=== PATIENT | female | born 1990 | race Caucasian/White ===

== ENCOUNTER 2018-09-20 19:51 | Emergency (ER) | payer BC ==
[2018-09-20 20:18] VITALS: BP 172/90; PULSE 80; RESP 18; TEMP 99.1
--- NOTE | 2018-09-20 22:38 | XR ---
EXAMINATION TYPE: XR hand complete LT DATE OF EXAM: 09/20/2018 COMPARISON: NONE HISTORY: Swelling TECHNIQUE: 3 views FINDINGS: I see no fracture nor dislocation. Metacarpals are intact. There is soft tissue swelling on the dorsum of the hand. IMPRESSION: Soft tissue swelling. No fracture seen.
--- NOTE | 2018-09-21 12:00 | US ---
EXAMINATION TYPE: US venous doppler duplex UE LT DATE OF EXAM: 09/21/2018 COMPARISON: NONE CLINICAL HISTORY: arm pain; swelling. SIDE PERFORMED: Left Left Arm: Negative for DVT. Vessels Imaged: IJV Subclavian Vein Axilla Vein Brachial Vein(s) Radial Paired Veins Ulnar Paired Veins Cephalic Vein* Basilic Vein* (*superficial vessels) IMPRESSION: Normal left arm duplex venous sonogram.
== END 2018-09-21 00:41 | disposition home or self-care (01) ==
LOC: EC 19:51
DX: R60.0 Localized edema (principal)
CPT/HCPCS: 96372; 99284

== ENCOUNTER → 2019-10-31 | Outpatient (CLI) | payer OTHER ==
--- NOTE | 2019-10-31 13:34 | ECHOF ---
Referral Reason:R01.1 cardiac murmur MEASUREMENTS -------- HEIGHT: 182.9 cm WEIGHT: 136.1 kg BP: RVIDd: 2.8 cm (< 3.3) IVSd: 1.3 cm (0.6 - 1.1) LVIDd: 3.9 cm (3.9 - 5.3) LVPWd: 1.6 cm (0.6 - 1.1) IVSs: 1.7 cm LVIDs: 2.5 cm LVPWs: 1.9 cm LAESV Index (A-L): 16.25 ml/m Ao Diam: 3.2 cm (2.0 - 3.7) AV Cusp: 1.7 cm (1.5 - 2.6) LA Diam: 2.8 cm (2.7 - 3.8) MV EXCURSION: 14.924 mm (> 18.000) MV EF SLOPE: 135 mm/s (70 - 150) EPSS: 0.6 cm MV E Ramso: 1.09 m/s MV DecT: 179 ms MV A Ramos: 0.51 m/s MV E/A Ratio: 2.14 RAP: 5.00 mmHg RVSP: 10.33 mmHg FINDINGS -------- Sinus rhythm. This was a technically adequate study. The left ventricular size is normal. There is moderate concentric left ventricular hypertrophy. O verall left ventricular systolic function is normal with, an EF between 55 - 60 %. The diastolic fi lling pattern is normal for the age of the patient 9.83. The right ventricle is normal in size. The left atrial size is normal. Normal LA size by volume 22+/-6 ml/m2. The right atrial size is normal. The aortic valve is trileaflet and appears structurally normal. The mitral valve is normal. There is trace mitral regurgitation. The tricuspid valve appears structurally normal. Trace tricuspid regurgitation present. Right [place] tricular systolic pressure is normal at < 35 mmHg. There is no pulmonic regurgitation present. The aortic root size is normal. Normal inferior vena cava with normal inspiratory collapse consistent with estimated right atrial pre ssure of 5 mmHg. There is no pericardial effusion. CONCLUSIONS -------- 1. Sinus rhythm. 2. This was a technically adequate study. 3. The left ventricular size is normal. 4. There is moderate concentric left ventricular hypertrophy. 5. Overall left ventricular systolic function is normal with, an EF between 55 - 60 %. 6. The diastolic filling pattern is normal for the age of the patient 9.83 7. The right ventricle is normal in size. 8. The left atrial size is normal. 9. Normal LA size by volume 22+/-6 ml/m2. 10. The right atrial size is normal. 11. The aortic valve is trileaflet and appears structurally normal. 12. The mitral valve is normal. 13. There is trace mitral regurgitation. 14. The tricuspid valve appears structurally normal. 15. Trace tricuspid regurgitation present. 16. Right ventricular systolic pressure is normal at < 35 mmHg. 17. There is no pulmonic regurgitation present. 18. The aortic root size is normal. 19. Normal inferior vena cava with normal inspiratory collapse consistent with estimated right atrial pressure of 5 mmHg. 20. There is no pericardial effusion. POLICE PATROL OFFICER: Kathryn Sosa RDCS
== END | disposition home or self-care (01) ==
LOC: RADECHMAIN 08:11
PROVIDERS: ATTEND Family Medicine
DX: I51.7 Cardiomegaly (principal)
CPT/HCPCS: 93306

== ENCOUNTER → 2019-11-12 | Outpatient (CLI) | payer OTHER ==
[2019-11-12 08:52] VITALS: BP 141/99; PULSE 82; RESP 18; TEMP 98
--- NOTE | 2019-11-12 09:52 | P.HPOB ---
History of Present Illness H&P Date: 11/12/19 Chief Complaint: The patient is here for her routine gynecologic exam. This is a 29-year-old with an LMP of 10/23/2019. The patient is here to establish with this office. She states it is been a little more than one year since her last pelvic exam. She has been using natural family planning to prevent . She recently was contemplating attempting . Her menstrual periods are typically regular every month lasting 5-7 days. In the months of August and September 2019, she had 2 menstrual periods in each month. Her LMP was more normal and at the appropriate time. She states she typically does feel warm and this is not new, but she seems to have been experiencing more sweating during the past year. She denies nipple discharge or unusual facial hair growth. She states she has been trying to lose weight during the past year and initially lost 30 pounds with diet and exercise. She states she has gained about 10 pounds back. Review of Systems She has had a net weight loss of about 20 pounds over the past year. She states she has had issues with her weight for most of her life. She denies respiratory, cardiac, or GI problems. Past Medical History Past Medical History: Musculoskeletal Disorder Additional Past Medical History / Comment(s): Eating disorder and obesity. Chronic back problems. 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 PIH with her first . History of Any Multi-Drug Resistant Organisms: None Reported Past Surgical History: Section, Tonsillectomy Additional Past Surgical History / Comment(s): Lower back surgery. Past Psychological History: No Psychological Hx Reported Smoking Status: Never smoker Past Alcohol Use History: Occasional (2 per month) Past Drug Use History: Marijuana Additional Drug Use History / Comment(s): Briefly used marijuana around age 19- 20. Additional History: She has been since 2016. She works part-time at [employer]. - Past Family History Father Family Medical History: Hypertension Additional Family Medical History / Comment(s): Paternal aunt had colon cancer. Paternal grandfather had prostate cancer. Maternal grandfather Family Medical History: Cancer Additional Family Medical History / Comment(s): Leukemia. Medications and Allergies Home Medications Medication Instructions Recorded Confirmed Type No Known Home Medications 11/12/19 11/12/19 History Allergies Allergy/AdvReac Type Severity Reaction Status Date / Time No Known Allergies Allergy Verified 11/12/19 08:48 Exam Vital Signs Temp Pulse Resp BP Pulse Ox 11/12/19 08:49 98.0 F 82 18 141/99 99 Intake and Output 11/11/19 11/12/19 11/12/19 22:59 06:59 14:59 Other: Weight 167.829 kg Repeat blood pressure 148/90. Height 5 feet 11 inches, weight 370 pounds, BMI 51.6. This is a well-developed well-nourished obese white female who is alert and oriented times 3 in no acute distress. HEENT: Within normal limits. NECK: Supple without mass or thyromegaly. CHEST AND LUNGS: Clear to auscultation. HEART: Regular rate and rhythm. BREASTS: Are without mass or discharge. AXILLARY EXAM: Negative for adenopathy. BACK: Negative for CVA tenderness. ABDOMEN: Soft, obese, nontender, without palpable masses. The umbilicus is within normal limits. She states she has experienced occasional foul-smelling discharge from the umbilicus, but this has resolved. PELVIC EXAM: Normal external genitalia. Cervix and vagina appear normal. There is no unusual discharge. There is no evidence of prolapse. The uterus is midposition, nongravid size and nontender. There are no palpable adnexal masses or tenderness. Bimanual examination is somewhat limited secondary to her size. RECTAL EXAM: Deferred. EXTREMITIES: Nontender. IMPRESSION: 1. 29-year-old female with normal gynecologic exam who uses natural family planning. 2. Recent polymenorrhea during the months of August and September 2019. No significant physical findings at this time. 3. Obesity. 4. Elevated blood pressure. PLAN: 1. Pap smear was performed. 2. Self breast awareness was discussed with the patient. 3. TSH will be drawn today because of her recent menstrual irregularity late in 2019. 4. I have recommended that she take a daily multivitamin with folic acid. 5. We have discussed weight control including the importance of good nutrition and regular exercise. I have also suggested the possibility of using a program such as Weight Watchers to help her control weight. 6. The patient will keep a menstrual calendar and return if she is having more menstrual irregularity or problems. 7. Her blood pressure elevation was discussed. I have recommended that she check her own blood pressure at home with a large blood pressure cuff. She is also to follow up with Dr. Acevedo for her blood pressure elevations. 8. She was advised to return in one year for her annual well woman exam.
== END | disposition home or self-care (01) ==
LOC: WWCWWP 08:22
PROVIDERS: ATTEND Obstetrics & Gynecology
DX: N92.0 Excessive and frequent menstruation with regular cycle (principal)
CPT/HCPCS: 84443

== ENCOUNTER → 2020-03-17 | Outpatient (CLI) | payer OTHER ==
[2020-03-17 09:58] VITALS: BP 144/89; RESP 18; TEMP 98.2
--- NOTE | 2020-03-17 11:04 | P.PN ---
Progress Note - Text Progress Note Date: 03/17/20 Chief Complaint: Greater menstrual irregularity over the past 4 months. HPI: This is a 29-year-old with an LMP of 03/11/2020. The patient was previously seen for her annual examination approximately 4 months ago. She had 2 months of frequent menses during August and September 2019 where she had to menstrual periods during each of those months. Her period in October was normal. Did not have a menstrual period in November and again had a menstrual period on 01/05/2020. This menstrual period was shorter and only lasted 4 days. She had a more normal menstrual period lasting 7 days on 02/11/2020. Her LMP on 03/11/2020 was shorter and griddle cook with only 3 days of griddle cook flow and a couple of days of spotting. She has also had multiple other complaints which she thinks may be related to her menstrual changes. She has noticed worsening hair loss over the past 1 year. She feels like she is developing slight bald spots. She has not been using contraception but has not really been actively trying to get either. She feels like she has been more forgetful with events that have just occurred. She has also been more emotional and tearful. She has been trying to eat more healthy and states she has less binge eating. She is been trying to increase activity as well but has been having difficulty losing weight. She has noticed more hair growth above her lip, but she is unsure if this is related to her [place] Heritage. She also has noticed some vaginal itching and wonders if she has a yeast infection. She has not gotten frequent yeast infections. She denies vaginal discharge or odor. She has not recently been on antibiotics. ROS: As above. PE: Blood pressure: 144/89, Height: 5 Feet 11 inches, Weight: 375 pounds, Temperature: 98.2, Pulse: 74. Pulse oximeter 98%. This is a well developed, well nourished, obese white female who is alert and orientedx3, in no acute distress. Pelvic exam: Normal external genitalia. Cervix and vagina appear normal. There is a small amount of mucous-type discharge without odor. There is no cervical motion tenderness. Uterus is mid positioned nongravid size and nontender. There are no palpable adnexal masses or tenderness. Bimanual examination is somewhat limited secondary to her size. Impression: 1. 29-year-old female not actively preventing with unremarkable gynecologic exam. 2. Recent menstrual irregularity consisting of mild oligomenorrhea. 3. Obesity with difficulty losing weight. 4. Mild hirsutism. 5. Possible PCOS. Differential diagnosis will also include thyroid dysfunction, hyperprolactinemia, , hyperandrogenism and possible diabetes with related symptoms. 6. Vaginal pruritus without any significant physical findings at this time. Plan: 1. Affirm testing for Viki, bacterial vaginosis, and trichomonas was obtained from the vagina. 2. Blood tests will include TSH, free T4, prolactin, FSH, LH, serum hCG, hemoglobin A1c, glucose, testosterone (free and total), DHEA-S and estradiol. 3. I have stressed the importance of good nutrition and exercise to lose weight. If the above workup is unremarkable, consider treatment for PCOS. We have discussed different options including trial of control pills as well as metformin use. We will also consider referral to a salesperson hosiery. Time spent with the patient: 35 minutes
[2020-03-17 19:41] LABS: Estradiol 38.6 pg/mL
[2020-03-17 19:43] LABS: Glucose 84 mg/dL (70-110)
[2020-03-17 19:51] LABS: Prolactin 5.1 ng/mL (2.8-29.2)
[2020-03-17 19:52] LABS: Follicle Stimulating Hormone 5.7 mIU/mL
[2020-03-17 19:55] LABS: HCG,Quantitative Serum <2.0 mIU/mL; Luteinizing Hormone 3.4 mIU/mL
[2020-03-18 14:11] LABS: Gardnerella Negative (Negative); Source Vagina; Trichomonas Negative (Negative)
--- NOTE | 2020-03-19 15:18 | P.PN ---
Progress Note - Text Progress Note Date: 03/19/20 The patient was called with test results from 03/17/20. Affirm testing was negative for Viki, Gardnerella and Trichomonas. Glucose, A1C, TSH, free T4, estradiol, FSH, LH, prolactin, testoserone, DHEA-s, and HCG were all WNL. I suspect she has some degree of polycystic ovarian syndrome. Because of her obesity, elevated blood pressures, and desire to get in the future, I have suggested working hard at weight loss and seeing a performance improvement coordinator. We have discussed options such as Weight Watchers and bariatric surgery options. I do not feel comfortable starting oral contraception for cycle regulation because of her elevated blood pressures and I feel other treatments such as metformin would be best done through a performance improvement coordinator. I will look into referring her to an RE specialist and I will send her more information on PCOS.
== END | disposition home or self-care (01) ==
LOC: WWCWWP 09:45
PROVIDERS: ATTEND Obstetrics & Gynecology
DX: L29.2 Pruritus vulvae (principal); N91.4 Secondary oligomenorrhea; E66.9 Obesity, unspecified; L65.9 Nonscarring hair loss, unspecified; L68.0 Hirsutism
CPT/HCPCS: 36415; 82627; 82670; 82947; 83001; 83002; 83036; 84146; 84402; 84403; 84439; 84443; 84702; 87480; 87510; 87660

== ENCOUNTER → 2020-04-22 | Outpatient (CLI) | payer OTHER ==
[2020-04-22 08:36] VITALS: BP 135/98; PULSE 85; RESP 16
--- NOTE | 2020-04-22 09:25 | P.PAINCN ---
History of Present Illness - Reason for Consult Consult date: 04/22/20 - History of Present Illness This is 29 years old female with a chronic history of severe low back pain, patient had lumbar herniated disc problem which required her to have back surgery in 2018, after the surgery she did fairly well, her radicular symptoms improved significantly, currently she is complaining of severe low back pain with radiation to the buttock and hip area bilaterally, the pain is constant and increases with any activity interfering with her quality of life and her ability to function, she denies any fever or night sweats she denies any motor or sensory deficits, she is able to ambulate freely, she tried physical therapy without any significant benefit Past Medical History Past Medical History: Musculoskeletal Disorder Additional Past Medical History / Comment(s): Eating disorder and obesity. Chronic back problems. 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 PIH with her first . PCOS History of Any Multi-Drug Resistant Organisms: None Reported Past Surgical History: Section, Tonsillectomy Additional Past Surgical History / Comment(s): Lower back surgery. Past Anesthesia/Blood Transfusion Reactions: No Reported Reaction Past Psychological History: No Psychological Hx Reported Smoking Status: Never smoker Past Alcohol Use History: Occasional Past Drug Use History: Marijuana Additional Drug Use History / Comment(s): Briefly used marijuana around age 19- 20. - Past Family History Father Family Medical History: Hypertension Additional Family Medical History / Comment(s): Paternal aunt had colon cancer. Paternal grandfather had prostate cancer. Maternal grandfather Family Medical History: Cancer Additional Family Medical History / Comment(s): Leukemia. Medications and Allergies Home Medications Medication Instructions Recorded Confirmed Type Acetaminophen Tab [Tylenol Tab] 500 mg PO Q6H 03/17/20 04/22/20 History Ibuprofen [Motrin] 400 mg PO Q8HR PRN 03/17/20 04/22/20 History Multivitamin [Multivitamins Adult 1 each PO DAILY 03/17/20 04/22/20 History Gummies] Allergies Allergy/AdvReac Type Severity Reaction Status Date / Time No Known Allergies Allergy Verified 04/22/20 08:18 Physical Exam Vitals: Vital Signs Pulse Resp BP Pulse Ox 04/22/20 08:20 85 16 135/98 97 Intake and Output 04/21/20 04/22/20 04/22/20 22:59 06:59 14:59 Other: Weight 181.437 kg REVIEW OF ORGAN SYSTEMS: CONSTITUTIONAL: No fevers or chills. No recent weight loss. EYES: denies troubles with vision. HEENT: No difficulties with hearing. No nosebleeds. No difficulty swallowing. RESPIRATORY: Denies any troubles with breathing or dyspnea on exertion. CARDIOVASCULAR: Denies any chest pain, palpitations, or recent heart attacks. GASTROINTESTINAL: Denies fatty food intolerance. Has change in bowel habits and gas bloat. GENITOURINARY: Denies any blood in urine. Has increased urinary frequency. NEUROLOGICAL: occasional numbness and tingling along the left distal extremities. No seizure disorders or headaches. MUSCULOSKELETAL: Has back pain. SKIN:no skin cancer. No rash. PSYCHIATRIC: Denies current depression or suicidal thoughts. ENDOCRINE: Denies current thyroid disorders. Denies any blood sugar glucose intolerance.++ Morbid obesity HEME/LYMPHATIC: Denies any lumps and bumps around the neck. History of deep venous thrombosis. ALLERGY/IMMUNOLOGY: No immunoglobulin therapy. No immune deficiencies. BREAST: Denies current breast lumps, pain or nipple discharge. Physical Examinations : Constitutiona : Cooperative , not in acute distress . HEENT : nech : supple , no Lymphadenopathy , normal thyroid size . : eyes no ptosis , no icterus, no photophobia . : ENT normal of hearing , normal oropharynx , no Thrush . Respiratory : Chest clear to auscultations Bilaterally , no wheezing , no Rhonchi . Cardiovascula : regular rate and rhythem , S1 , S2 , no S3 , no S4. Gastrointestina : abdomen soft no tenderness , bowel sounds , no organomegally . Genitourinary : Defferred . neurologic : Cranial nerve II to XII intact , no focal neurological deffecit . psychatric : alert , oriented X 3 , appropriate affect , intact judgment and insight . Lymphatic : no Lymphadenopathy . musculoskeltal : Lumber spine moter stegnth lower extremities ,thigh and legs 5/5 Right side , 5/5 Left side deep tendon reflexes : normal Knee Jerk , normal ankle Jerk lumber facet Loading Test= positive Right , positive Left Range of motion of the lumbar spine Flexion 60 degrees, extension 10 degrees strait leg raising test , positive at 45 degree Fabere test= positive Right , and positive left . Sever tenderness over the Sacroiliac joint on the Right , and Left sides Gaenslen test= positive bilaterally. Seated flexion test= positive bilaterally. Tenderness over the trochanteric bursa bilaterally more prominent on the right side Results Comments: MRI of the lumbar spine multilevel lumbar degenerative disc disease and multilevel facet joint arthropathy and there is postsurgical changes Assessment and Plan Plan: Assessment and plan= lumbar degenerative disc disease. Lumbar spondylosis with lumbar facet arthropathy. Bilateral sacroiliitis. Trochanteric bursitis. Morbid obesity. Patient will be good candidate to have diagnostic medial branch block lumbar area L3, L4, L5 (to target the facet joint at L4 5 and L5-S1. Procedure risks and benefits and alternatives discussed with the patient and she agreed with the preceding Time with Patient: Greater than 30 PQRS Measure Charge Sheet Measure #130: Documentation of Current Meds in Medical Chart: Patient's medications documented in chart Measure #226: Tobacco Use: Screen & Cessation Intervention: Pt not a tobacco user Measure #111: Pneumonia Vaccination: Pneumococcal vaccine NOT administered or previously given Measure #47: Advance Care Plan: Advance care planning discussed & documented, pt chose/unable to give Measure #412: Opioid Treatment Agreement: No documentation of signed opioid treatment agreement Measure #408: Opioid Therapy Follow-up Evaluation: Patient had NO f/u eval minimum every 3 months during opioid therapy Measure #317: Preventitive Care & Scrn High Bld Press & F/U: Normal blood pressure, f/u not required Measure #128: Body Mass Index (BMI) Screening & Follow-up: BMI documented ABOVE normal parameters - f/u documented Measure #131: Pain Assessment & Follow-up: Pain positive & plan documented, Follow-up scheduled Measure #431: Unhealthy Alcohol Use Preventative Care & Scrn: Patient not identified as an unhealthy alcohol user PQRS Narrative: Smoking Status Never smoker Blood Pressure 135/98 Pain Intensity [Lower Back] 5 Scale Used Numeric (1 - 10) Hx Alcohol Use (MH) Yes: occasional Home Medications: Ambulatory Orders Acetaminophen Tab [Tylenol Tab] 500 mg PO Q6H 03/17/20 Ibuprofen [Motrin] 400 mg PO Q8HR PRN 03/17/20 Multivitamin [Multivitamins Adult Gummies] 1 each PO DAILY 03/17/20
== END | disposition home or self-care (01) ==
LOC: PNWHC3 08:11
PROVIDERS: ATTEND Specialist
DX: M51.36 Other intervertebral disc degeneration, lumbar region (principal); M47.816 Spondylosis without myelopathy or radiculopathy, lumbar region; M46.1 Sacroiliitis, not elsewhere classified; M70.60 Trochanteric bursitis, unspecified hip; E66.01 Morbid (severe) obesity due to excess calories; Z79.899 Other long term (current) drug therapy; Z79.891 Long term (current) use of opiate analgesic
CPT/HCPCS: 99211

== ENCOUNTER 2020-05-07 09:14 | Day surgery (SDC) | payer OTHER ==
[2020-05-05 08:35] VITALS: BMI 57.4
[2020-05-07] MEDS ORDERED: LACTATED RINGERS 1,000 ML IV SCH (09:26)
[2020-05-07 09:36] VITALS: RESP 16; TEMP 98
[2020-05-07] MEDS ORDERED: IOPAMIDOL M200 10 ML VIAL ONE (10:21)
[2020-05-07] MEDS ORDERED: MIDAZOLAM 2 MG/2 ML VIAL ONE (10:21)
[2020-05-07] MEDS ORDERED: LIDOCAINE 4% (PF) 5 ML AMP ONE (10:21)
[2020-05-07] MEDS ORDERED: IV FLUID CONTINUATION 700 ML IV ONE (10:48)
--- NOTE | 2020-05-07 10:53 | P.PCN ---
Date of Procedure: 05/07/20 Procedure(s) Performed: PREOPERATIVE DIAGNOSIS : Lumbar spondylosis with Facet Arthropathy without myelopathy POSTOPERATIVE DIAGNOSIS: same PROCEDURE: First Diagnostic lumbar medial branch block with fluoroscopy at L3, L4, L5 [bilateral] which covers facets L4-5 and L5-S1 ANESTHESIA: Local anesthetic; moderate IV sedation with Versed 2 mg, sedation time 13 minutes Fluoroscopy was used for the procedure and images were saved in the radiology portion of the chart. Surgeon: Bret Sanchez MD PROCEDURE INDICATION: Lumbar back pain without radiculopathy, not responsive to conservative management. PROCEDURE DESCRIPTION: the patient was seen and identified in the preop holding area , risks and benefits and possible complications of the procedure and alternatives were discussed with the patient, and the patient agreed to proceed with the procedure and signed the consent . IV was started , vital signs were monitored during the procedure and fluoroscopy was used to maximize the benefit and accuracy of the needle placement, and sedation was given to decrease patient anxiety. Patient was taken to the procedure room and placed in prone position. The lumbar region was prepped using chlorhexidineX-2. Under strict sterile technique using AP fluoroscopy the bilateral sacral ala were identified and using ipsilateral oblique fluoroscopy ,the junction of the transverse process and the superior articulating process of the L4, L5 vertebra which corresponds to the fluoroscopy image of the eye of the Subhash dog for the medial branches were identified. Subsequently, after local infiltration of skin with lidocaine 1% 0.2 mL at each level , a 22-gauge 5 inch Quincke-type needle was placed at the junction of the base of the transverse process and the superior articular process at the appropriate level as well as the sacral ala, and the needle was advanced until the periosteum contacted, needle placement confirmed with AP and oblique fluoroscopy, 0.2 mL of Isovue 200 per level was injected which revealed no vascular uptake and after negative aspiration, 0.5 mL of [lidocaine 4%] was injected at each level and the needle subsequently removed . At the end of the procedure and the needles were removed and a bandage applied after the skin was cleaned. The patient was taken to recovery room in stable condition and monitors in the recovery room for 20-30 minutes and discharged home in stable condition after discharge criteria met and patient will follow up in clinic in 2 weeks EBL: Minimal COMPLICATION: None.
[2020-05-07 11:16] VITALS: BP 134/78; PULSE 75
--- NOTE | 2020-05-07 15:30 | FL ---
EXAMINATION TYPE: FL guided pain mgmt statistic DATE OF EXAM: 05/07/2020 COMPARISON: None HISTORY: Lumbar facet pain TECHNIQUE: Fluoroscopy. FINDINGS: Fluoroscopic guidance was provided during procedure performed by Dr. Sanchez. A total of 8 se conds of fluoroscopic time was utilized during the procedure and 3 spot images was acquired. Please s ee operative report for additional details. IMPRESSION: As Above.
== END 2020-05-07 11:38 | disposition home or self-care (01) ==
LOC: ORPAIN 09:14
PROVIDERS: ATTEND Anesthesiology
DX: M47.816 Spondylosis without myelopathy or radiculopathy, lumbar region (principal)
CPT/HCPCS: 81025; 64493; 64494; J2001; J2250; Q9966; 99152

== ENCOUNTER 2020-05-28 09:08 | Day surgery (SDC) | payer OTHER ==
[2020-05-25 13:07] VITALS: BMI 56.6
[2020-05-28 09:58] VITALS: RESP 16; TEMP 98.3
[2020-05-28] MEDS: LACTATED RINGERS 1,000 ML IV SCH ×2 (10:04→10:17)
[2020-05-28] MEDS ORDERED: LIDOCAINE 1% (10MG/ML) FOR IV START INTRADERMA ONE (10:04)
[2020-05-28] MEDS ORDERED: LIDOCAINE 1% INJ 10MG/ML (20 ML MDV) ONE (10:19)
[2020-05-28] MEDS ORDERED: MIDAZOLAM 2 MG/2 ML VIAL ONE (10:19)
[2020-05-28] MEDS ORDERED: ROPIVACAINE 5MG/ML 20ML VIAL ONE (10:19)
[2020-05-28] MEDS ORDERED: IOPAMIDOL M200 10 ML VIAL ONE (10:19)
--- NOTE | 2020-05-28 10:43 | P.PCN ---
Date of Procedure: 05/28/20 Description of Procedure: PREOPERATIVE DIAGNOSIS : Lumbar spondylosis with Facet Arthropathy without myelopathy POSTOPERATIVE DIAGNOSIS: same PROCEDURE: Second Diagnostic lumbar medial branch block with fluoroscopy at L3, L4, L5 [bilateral] which covers facets L4-5 and L5-S1 ANESTHESIA: Local anesthetic; moderate IV sedation with Versed mg, sedation time 16 min Fluoroscopy was used for the procedure and images were saved in the radiology portion of the chart. Surgeon: Brody Steve MD PROCEDURE INDICATION: Lumbar back pain without radiculopathy, not responsive to conservative management. PROCEDURE DESCRIPTION: the patient was seen and identified in the preop holding area , risks and benefits and possible complications of the procedure and alternatives were discussed with the patient, and the patient agreed to proceed with the procedure and signed the consent . IV was started , vital signs were monitored during the procedure and fluoroscopy was used to maximize the benefit and accuracy of the needle placement, and sedation was given to decrease patient anxiety. Patient was taken to the procedure room and placed in prone position. The lumbar region was prepped using chlorhexidineX-2. Under strict sterile technique using AP fluoroscopy the bilateral sacral ala were identified and using ipsilateral oblique fluoroscopy ,the junction of the transverse process and the superior articulating process of the L4, L5 vertebra which corresponds to the fluoroscopy image of the eye of the Subhash dog for the medial branches were identified. Subsequently, after local infiltration of skin with lidocaine 1% 0.2 mL at each level , a 22-guage 5"Quincke-type needle was placed at the junction of the base of the transverse process and the superior articular process at the appropriate level as well as the sacral ala, and the needle was advanced until the periosteum contacted, needle placement confirmed with AP and oblique fluoroscopy, 0.2 mL of Isovue 200 per level was injected which revealed no vascular uptake and after negative aspiration, 1 mL of ropivacaine 0.5% was injected at each level and the needle subsequently removed . At the end of the procedure and the needles were removed and a bandage applied after the skin was cleaned. The patient was taken to recovery room in stable condition and monitors in the recovery room for 20-30 minutes and discharged home in stable condition after discharge criteria met and patient will follow up in clinic in 2 weeks EBL: Minimal COMPLICATION: None.
[2020-05-28 11:13] VITALS: BP 148/91; PULSE 75
[2020-05-28] MEDS ORDERED: IV FLUID CONTINUATION 1,000 ML IV ONE (11:13)
--- NOTE | 2020-05-28 13:23 | FL ---
EXAMINATION TYPE: FL guided pain mgmt statistic DATE OF EXAM: 05/28/2020 CLINICAL HISTORY: Low back pain. TECHNIQUE: Fluoroscopy. COMPARISON: None. FINDINGS: Fluoroscopic guidance was provided during pain relief procedure performed by Dr. Steve . A total of 24 seconds of fluoroscopic time was utilized during the procedure and 3 spot images are a cquired. Images acquired shows needle localization lower lumbar spine and near lumbosacral junction. IMPRESSION: As Above.
== END 2020-05-28 11:36 | disposition home or self-care (01) ==
LOC: ORPAIN 09:08
PROVIDERS: ATTEND Anesthesiology
DX: M47.816 Spondylosis without myelopathy or radiculopathy, lumbar region (principal)
CPT/HCPCS: 81025; 64493; 64494 ×2; J2250; J2001; Q9966; J2795; 99152

== ENCOUNTER → 2020-06-22 | Outpatient (CLI) | payer OTHER ==
[2020-06-22 09:32] VITALS: BP 144/95; PULSE 78; RESP 16; TEMP 98.1
--- NOTE | 2020-06-22 09:54 | P.PN ---
Subjective Progress Note Date: 06/22/20 This is a 40-year-old morbidly obese lady with history of chronic lower back pain status post lumbar laminectomy. The patient had a diagnostic lumbar medial branch block bilaterally in our clinic which gave her more than 50% of temporary pain relief. The patient denies any bowel or bladder dysfunction or any weakness in the lower extremities. She denies any history of diabetes or prediabetes however she has PCOS and she takes metformin for that. The patient has more pain on the left side of her lower back. Patient denies new-onset weakness, bowel/bladder incontinence, or any other signs or symptoms of cauda equina syndrome. There are no signs of acute intoxication, and no indications of medication diversion or overuse. In addition to above, 13-point review of systems is also negative for chest pain, shortness of breath, changes in vision, changes in hearing, new onset weakness, abdominal pain, diarrhea, extreme fatigue, malaise, fever, skin changes, homicidal or suicidal ideation, or bowel or bladder incontinence. Vital Signs: Reviewed in EMR Gen: AAOx3, NAD HEENT: PERRLA,hearing grossly normal Pulm: resp unlabored Heart: Regular Neck: supple, trachea midline Neuro exam of the lower extremities: Normal and symmetrical muscle strength bilaterally Straight leg raising test: Negative bilaterally Gio's test: Range of motion of the lumbar spine: Facet loading test: Tenderness in the paravertebral musculature: Positive on the lumbar paravertebral musculature bilaterally more on the left side than the right side Neuro: CN II-XII grossly intact, Imaging: Reviewed in EMR/chart Assessment: Morbid obesity Lumbar spondylosis without myelopathy Lumbar postlaminectomy pain syndrome Plan: 1. Explanation: Opioid and psychological risk scores were reviewed. Diagnoses, prognoses, and multiple treatment options including but not limited to physical therapy, interventional therapies, adjuvant medical therapies, narcotic medication therapies, and surgery were discussed with the patient and all questions were answered to the patient's satisfaction. 2. Opioid agreement: Not side Signed with the patient and the patient is warned not to use opioids while driving or before driving and not to combine opioids with benzodiazepines or alcohol. The patient does not use opioids. 3. Counseling: The patient was counseled extensively on SMOKING CESSATION, BODY MASS INDEX, EXERCISE. Specifically, the patient was instructed regarding the importance of smoking cessation, obesity, and exercise in the context of both chronic pain and overall health. 4. Procedures: Scheduled for left lumbar medial branch RFA for levels L3 4, L4- L5, and L5-S1 under fluoroscopic guidance 5. Consultations: None 6. Investigations: None 7. Medications: None 8. Disposition: Return to clinic in 4 weeks 9. Maps were reviewed and were appropriate. Objective - Vital Signs Vital signs: Vital Signs Temp 98.1 F 06/22/20 09:21 Pulse 78 06/22/20 09:21 Resp 16 06/22/20 09:21 BP 144/95 06/22/20 09:21 Pulse Ox 99 06/22/20 09:21
== END | disposition home or self-care (01) ==
LOC: PNWHC3 09:08
PROVIDERS: ATTEND Anesthesiology
DX: M96.1 Postlaminectomy syndrome, not elsewhere classified (principal); M47.816 Spondylosis without myelopathy or radiculopathy, lumbar region; E66.01 Morbid (severe) obesity due to excess calories
CPT/HCPCS: 99211

== ENCOUNTER 2020-06-27 11:49 | Emergency (ER) | payer OTHER ==
[2020-06-27] MEDS ORDERED: ORPHENADRINE 30 MG/ML 2 ML VIAL IM STA (12:22)
[2020-06-27] MEDS ORDERED: HYDROmorphone 1 MG/ML 1 ML SYRINGE IM STA (12:22)
[2020-06-27] MEDS ORDERED: methylPREDNISolone SOD SUCCI 125 MG/2 ML VIAL IM ONE (12:22)
--- NOTE | 2020-06-27 13:35 | ED ---
Back Pain HPI - General Chief Complaint: Back Pain/Injury Stated Complaint: Back pain Time Seen by Provider: 06/27/20 12:04 Source: patient, RN notes reviewed, old records reviewed Limitations: no limitations - History of Present Illness Initial Comments: Patient is a 30-year-old female presents the ER today for concern for intractable back pain. She has history of chronic back pain. She states that over the past few hCG worse with certain movements. 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 Patient states that she has seen pain management has had previous lumbar nerve ablations. Patient does not have one scheduled for the next months. She denies any saddle anesthesias. Denies abdominal pain. - Related Data Home Medications Medication Instructions Recorded Confirmed Ibuprofen 200 - 400 mg PO Q8H PRN 05/05/20 06/22/20 Pnv No.95/Ferrous Fum/Folic AC 1 each PO DAILY 05/05/20 06/22/20 [ Multivitamin Tablet] Cholecalciferol [Vitamin D3 (25 1,000 unit PO DAILY 05/07/20 06/22/20 Mcg = 1000 Iu)] Biotin 6,000 mcg PO DAILY 05/25/20 06/22/20 metFORMIN HCL [Glucophage] 500 mg PO BID 06/18/20 06/22/20 Previous Rx's Medication Instructions Recorded Cyclobenzaprine [Flexeril] 10 mg PO TID #12 tab 06/27/20 HYDROcodone/APAP 5-325MG [Par[place] 1 tab PO Q6HR PRN #12 tab 06/27/20 5-325] dexAMETHasone [Dexamethasone] 0.75 mg PO DAILY #12 tab 06/27/20 Allergies Allergy/AdvReac Type Severity Reaction Status Date / Time No Known Allergies Allergy Verified 06/27/20 11:59 Review of Systems ROS Statement: Those systems with pertinent positive or pertinent negative responses have been documented in the HPI. ROS Other: All systems not noted in ROS Statement are negative. Past Medical History Past Medical History: Musculoskeletal Disorder Additional Past Medical History / Comment(s): migraines, Chronic lower back pain. hx 3 herniated disks, Polycystic ovarian syndrome, neuropathy, planter fa sciitis History of Any Multi-Drug Resistant Organisms: None Reported Past Surgical History: Back Surgery, Section, Tonsillectomy Additional Past Surgical History / Comment(s): laminectomy Past Anesthesia/Blood Transfusion Reactions: Motion Sickness Past Psychological History: Anxiety, Depression Smoking Status: Never smoker Past Alcohol Use History: Rare Past Drug Use History: None Reported - Past Family History Father Additional Family Medical History / Comment(s): Paternal aunt had colon cancer. Paternal grandfather had prostate cancer. Mother Family Medical History: No Reported History Maternal grandfather Family Medical History: Cancer Additional Family Medical History / Comment(s): Leukemia. General Exam - General Exam Comments Initial Comments: Obese 30-year-old female. No significant distress. Limitations: no limitations General appearance: alert, in no apparent distress Head exam: Present: atraumatic, normocephalic, normal inspection Eye exam: Present: normal appearance, PERRL, EOMI. Absent: scleral icterus, conjunctival injection, periorbital swelling ENT exam: Present: normal exam, mucous membranes moist Neck exam: Present: normal inspection. Absent: tenderness, meningismus, lymphadenopathy Respiratory exam: Present: normal lung sounds bilaterally. Absent: respiratory distress, wheezes, rales, rhonchi, stridor Cardiovascular Exam: Present: regular rate GI/Abdominal exam: Present: soft, normal bowel sounds. Absent: distended, tenderness, guarding, rebound, rigid Back exam: Present: normal inspection Neurological exam: Present: alert, oriented X3, CN II-XII intact Psychiatric exam: Present: normal affect, normal mood Skin exam: Present: warm, dry, intact, normal color. 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 She reports some worsening past few months. Patient states it's spasming on her left side of her back and buttocks. Patient was given IM Norflex and IM analgesics and does report improvement of pain. Discussed Patient should follow up with pain management. We'll discharge her with a short course of pain medication. Disposition Clinical Impression: Chronic back pain Disposition: HOME SELF-CARE Condition: Stable Instructions (If sedation given, give patient instructions): Chronic Back Pain (DC) Additional Instructions: Patient has a close follow-up with pain management. Return to the ED if any alarming signs or symptoms occur. Prescriptions: dexAMETHasone [Dexamethasone] 0.75 mg PO DAILY #12 tab Cyclobenzaprine [Flexeril] 10 mg PO TID #12 tab HYDROcodone/APAP 5-325MG [Paragould 5-325] 1 tab PO Q6HR PRN #12 tab PRN Reason: Pain Is patient prescribed a controlled substance at d/c from ED?: Yes If prescribed controlled substance>3 days was MAPS reviewed?: Prescribed <3 Days If opioid is for acute pain is fill amount 7 days or less?: Yes If Rx opioid, was Start Talking consent form obtained?: Yes Referrals: Franky Acevedo MD [Primary Care Provider] - 1-2 days Time of Disposition: 13:29
[2020-06-27 13:47] VITALS: BP 127/77; PULSE 81; RESP 17; TEMP 98.3
== END 2020-06-27 13:47 | disposition home or self-care (01) ==
LOC: EC 11:49
DX: G89.29 Other chronic pain (principal); M54.9 Dorsalgia, unspecified; M25.552 Pain in left hip; M25.551 Pain in right hip
CPT/HCPCS: 96372 ×3; 99283; J2360; J2930; J1170

== ENCOUNTER 2020-07-30 08:55 | Day surgery (SDC) | payer OTHER ==
[2020-07-28 11:58] VITALS: BMI 53.4
[2020-07-30 09:47] VITALS: TEMP 97.6
[2020-07-30] MEDS: LACTATED RINGERS 1,000 ML IV SCH ×2 (09:54→10:36)
[2020-07-30] MEDS ORDERED: LIDOCAINE 1% (10MG/ML) FOR IV START INTRADERMA ONE (09:55)
--- NOTE | 2020-07-30 10:57 | P.PN ---
Progress Note - Text Progress Note Date: 07/30/20 This is 50 years old female with a history of severe low back pain she is diagnostic with lumbar spondylosis with lumbar facet arthropathy without myelopathy, she had diagnostic medial branch block in the past and she had positive results, she is scheduled to have RFA of the medial branch lumbar area today, and after patient was taken to the procedure room placed in prone position, then we were notified that her insurance did not approve the RFA, because she changed insurance beginning of July 2020, for this reason the procedure was aborted, patient will be seen in the pain clinic for reevaluation and get approval from her new insurance before we can proceed with RFA of the medial branch lumbar area
[2020-07-30] MEDS ORDERED: IV FLUID CONTINUATION 850 ML IV ONE (11:05)
[2020-07-30 11:15] VITALS: RESP 16
[2020-07-30 11:28] VITALS: BP 126/88; PULSE 65
== END 2020-07-30 11:40 | disposition home or self-care (01) ==
LOC: ORPAIN 08:55
PROVIDERS: ATTEND Specialist
DX: M47.816 Spondylosis without myelopathy or radiculopathy, lumbar region (principal); Z53.8 Procedure and treatment not carried out for other reasons
CPT/HCPCS: 81025; 99152

== ENCOUNTER 2020-08-06 10:00 | Day surgery (SDC) | payer OTHER ==
[2020-08-04 11:05] VITALS: BMI 52.0
[2020-08-06] MEDS ORDERED: LACTATED RINGERS 1,000 ML IV SCH (10:06)
[2020-08-06 10:29] VITALS: TEMP 978
[2020-08-06 10:33] LABS: Glucose,Whole Blood 110 mg/dL (75-99)
[2020-08-06] MEDS ORDERED: LIDOCAINE 1% (10MG/ML) FOR IV START INTRADERMA ONE (10:33)
[2020-08-06] MEDS ORDERED: LIDOCAINE 1% INJ 10MG/ML (20 ML MDV) ONE (10:34)
[2020-08-06] MEDS ORDERED: fentaNYL (PF) 50 MCG/ML 2 ML AMP ONE (10:34)
[2020-08-06] MEDS ORDERED: ROPIVACAINE 5MG/ML 20ML VIAL ONE (10:34)
[2020-08-06] MEDS ORDERED: MIDAZOLAM 2 MG/2 ML VIAL ONE (10:34)
--- NOTE | 2020-08-06 11:05 | P.PCN ---
Date of Procedure: 08/06/20 Description of Procedure: PREOPERATIVE DIAGNOSIS: Lumbar Facet Arthropathy without myelopathy POSTOPERATIVE DIAGNOSIS: Same PROCEDURES: Bilateral Radiofrequency thermocoagulation of L L4-5, L5-S1 medial branches, with fluoroscopic guidance ANESTHESIA: IV sedation with versed and fentanyl and local infiltration with lidocaine 1% 10 ml Imaging: Fluoroscopy was used, images where saved to the medical record PROCEDURE INDICATION: The patient with low back pain secondary to lumbar facet arthropathy who had more than 50% relief of pain with previous diagnostic lumbar medial branch block with local anesthetic. PROCEDURE DESCRIPTION / TECHNIQUE: The patient was seen and identified in the preoperative area. Risks, benefits, complications, including but not limited to risk of infection, bleeding, allergic reactions to the medications and no complete pain relief, and alternatives were discussed with the patient, the patient agreed to proceed with the procedure and signed the consent. IV was started. Vital signs remained stable throughout the procedure. Patient was taken to the OR and time out was completed. The patient was placed in the prone position on the procedure table. The lumber area was prepped and draped in the usual sterile fashion. Vital signs were closely monitored during the procedure. IV sedation was used during the procedure to decrease patient anxiety. Using AP and then oblique fluoroscopy, the eye of the Subhash dog corresponding to the connection between the superior and transverse articular processes of L4, L5, and sacral Ala were identified, marked, and localized with 1% lidocaine. Subsequently, a [id number] radiofrequency cannula with a 10-mm active tip was advanced guided by fluoroscopy to the junction of the pedicle and transverse process of each identified level. Each site then underwent sensory testing at 50 Hz and 0 to 1 volt and motor testing at 2.5 Hz and 0 to 3 volt with local stimulation, no radicular symptoms sensed by the patient and no obvious motor stimulation noted. Thereafter the tested sites underwent radiofrequency thermocoagulation at 80 degrees celsius for 90 seconds after injecting 1 ml of PF lidocaine 1%. Then after the thermocoagulation was done, 1 ml of the block solution containing ropivaciane 0.5% was injected at the lesioned sites after negative aspiration of CSF and blood and with no paresthesias. Cannulas were retracted. At the end of the procedure, the skin was cleansed and bandages were applied. COMPLICATIONS: No acute complications. DISPOSITION / PLANS: The patient was placed in a supine position and transferred to the recovery area in a stable condition for observation and was discharged from the recovery room after meeting discharge criteria. Home discharge instructions given to the patient by the staff. The patient was reexamined prior to discharge. Patient will follow up as directed.
[2020-08-06] MEDS ORDERED: IV FLUID CONTINUATION 1,000 ML IV ONE (11:10)
[2020-08-06 11:20] VITALS: BP 129/83; PULSE 69; RESP 14
--- NOTE | 2020-08-06 11:28 | FL ---
Fluoroscopy HISTORY: Pain 11 seconds fluoroscopy time supplied to the referring clinician. 5 intraoperative C-arm images docum ent the procedure. See dictated report from anesthesia.
== END 2020-08-06 11:33 | disposition home or self-care (01) ==
LOC: ORPAIN 10:00
PROVIDERS: ATTEND Hospitalist
DX: M47.816 Spondylosis without myelopathy or radiculopathy, lumbar region (principal)
CPT/HCPCS: 81025; 64635; 64636; J2250; J2001; J3010; J2795; 99152; 99153

== ENCOUNTER → 2020-09-02 | Outpatient (CLI) | payer OTHER ==
[2020-09-02 08:15] VITALS: PULSE 67; RESP 18; TEMP 98.1
[2020-09-02 08:25] VITALS: BP 135/88
--- NOTE | 2020-09-02 08:28 | P.PN ---
Subjective Progress Note Date: 09/02/20 Assessment follow-up visit for this 30 years old female, with a history of severe and chronic low back pain she stated goals with lumbar spondylosis with lumbar facet arthropathy and lumbar degenerative disc disease, and bilateral sacroiliitis, status post RFA of the medial branch lumbar area, currently she is complaining of severe low back pain mainly on the left side, with radiation to the left buttock and to the posterior aspect of the left lower extremity behind the knee, she denies any motor or sensory deficits she denies any fever or night sweats, and no change in bowel movement or urination, pain is constant and increases with any activity Objective - Vital Signs Vital signs: Vital Signs Temp 98.1 F 09/02/20 08:12 Pulse 67 09/02/20 08:12 Resp 18 09/02/20 08:12 BP 148/103 09/02/20 08:12 Pulse Ox Intake & Output 09/01/20 09/02/20 09/02/20 18:59 06:59 18:59 Weight 166.015 kg - Exam Physical Examinations : -Constitutiona : Cooperative , not in acute distress . -HEENT : nech : supple , no Lymphadenopathy , normal thyroid size . : eyes : no ptosis , no icterus, no photophobia . - neurologic : Cranial nerve II to XII intact , no focal neurological deffecit . -psychatric : alert , oriented X 3 , appropriate affect , intact judgment and insight . -Lymphatic : no Lymphadenopathy . - musculoskeltal : Lumber spine moter stegnth lower extremities ,thigh and legs 5/5 Right side , 5/5 Left side deep tendon reflexes : normal Knee Jerk , normal ankle Jerk lumber facet Loading Test =negative Range of motion of the lumbar spine Flexion 60 degrees, extension 10 degrees strait leg raising test = positive at 45 degree Fabere test= positive Right , and positive LT . Sever tenderness over the Sacroiliac joint on the left Gaenslen test= positive left . Seated flexion test= positive Left . Assessment and Plan Plan: Assessment and plan=1-lumbar spondylosis with lumbar facet arthropathy without myelopathy. 2-lumbar degenerative disc disease. 3-sacroiliitis. Currently most of the pain is coming from the left sacroiliac joint, could benefit from left-sided sacroiliac steroid injections under fluoroscopy guidance, procedure risks and benefits and alternatives discussed with the patient and she agreed with proceeding - PQRS measures = - Patient's medications are documented in the chart. -Tobacco use is negative and counseling.Given. -Patient's has not received pneumococcal vaccine. -Advanced care planning discussed, patient not eligible. -Opiate contract signed. -Pain positive and follow-up visit/procedure is scheduled. -Patient's blood pressure measured [ 118/103 ] , and documented in the record ,and patient will follow up with the primary care. -Patient's weight was measured and body mass index ,above the normal limits and counseling was done. and patient instructed to follow-up with the primary care physician. -Patient was not identified as an unhealthy alcohol user Time with Patient: Less than 30
== END | disposition home or self-care (01) ==
LOC: PNWHC3 07:59
PROVIDERS: ATTEND Specialist
DX: M51.36 Other intervertebral disc degeneration, lumbar region (principal); M47.816 Spondylosis without myelopathy or radiculopathy, lumbar region; M46.1 Sacroiliitis, not elsewhere classified
CPT/HCPCS: 99211

== ENCOUNTER 2020-10-06 06:09 | Day surgery (SDC) | payer OTHER ==
[2020-10-05 09:42] VITALS: BMI 49.2
[2020-10-06] MEDS ORDERED: LACTATED RINGERS 1,000 ML IV SCH (06:52)
[2020-10-06 06:58] VITALS: TEMP 96.9
[2020-10-06] MEDS ORDERED: methylPREDNISolone ACETATE 40 MG/ML 1 ML VIAL ONE (07:05)
[2020-10-06] MEDS ORDERED: ROPIVACAINE 5MG/ML 20ML VIAL ONE (07:05)
--- NOTE | 2020-10-06 07:21 | P.PCN ---
Date of Procedure: 10/06/20 Procedure(s) Performed: Procedure= Left sacroiliac joints steroid injection under fluoroscopy guidance (fluoroscopy image stored on file in the radiology Department ) Preoperative diagnosis= 1- left sacroiliitis 2-lumbar degenerative disc disease 3-lumbar spondylosis with lumbar facet arthropathy Postoperative diagnosis=Same as preop Diagnosis . Complication = none Condition= stable Anesthesia= local infiltration with ropivacaine 0.5% 3 mL . ( NO IV SEDATIONS ) Indication for the procedure= patient complaining of low back pain , examination was positive for severe tenderness over the sacroiliac joints on the left side, and patient diagnosed with sacroiliitis, for this reason she was good candidate for the left sacroiliac joint steroid injection. Description of the procedure= procedure risk and benefits discussed with the patient, including but not limited, risk of infection and bleeding, and ALLERGIC reaction to the medication and not complete pain relief and patient agreed with the preceding patient taken to the operating room, placed in prone position or standard monitors applied to the patient then after induction of anesthesia back prepped with chlorhexidine 3 times , Then under strict sterile technique, I did the left sacroiliac joint the which was identified under fluoroscopy guidance been local infiltration of the skin and subcu interstitial with ropivacaine 0.5% then 25-gauge 5 inches long Quincke Needle advanced slowly under fluoroscopy and placed in the left sacroiliac joint needle placement confirmed with AP and oblique and lateral view and after appropriate needle placement confirmed and after negative aspiration, or heme , then Ropivacaine 0.5% 3 mL, and 40 mg of Depo-Medrol mixed together and injected in the right sacroiliac joint after negative aspiration patient tolerated the procedure well without any complication.
[2020-10-06 07:28] VITALS: RESP 16
[2020-10-06 07:47] VITALS: BP 135/73; PULSE 72
--- NOTE | 2020-10-06 08:21 | FL ---
Fluoroscopy HISTORY: Pain 7 seconds fluoroscopy time supplied to the referring clinician. 1 intraoperative C-arm images docume nt the procedure. See dictated report from anesthesia.
== END 2020-10-06 07:52 | disposition home or self-care (01) ==
LOC: ORPAIN 06:09
PROVIDERS: ATTEND Specialist
DX: M46.1 Sacroiliitis, not elsewhere classified (principal); M47.816 Spondylosis without myelopathy or radiculopathy, lumbar region; M51.36 Other intervertebral disc degeneration, lumbar region; E11.9 Type 2 diabetes mellitus without complications; Z79.1 Long term (current) use of non-steroidal anti-inflammatories (NSAID)
CPT/HCPCS: 81025; J1030; J2795; G0260; 27096

== ENCOUNTER 2020-11-20 08:51 | Day surgery (SDC) | payer OTHER ==
[2020-11-19 11:09] VITALS: BMI 47.2
[~2020-11-20 08:51] MED LIST: LACTATED RINGERS 1,000 ML IV SCH
[2020-11-20 09:17] VITALS: RESP 16; TEMP 96.8
[2020-11-20] MEDS ORDERED: TRIAMCINOLONE ACETONIDE 40 MG/ML 1 ML VIAL ONE (10:00)
[2020-11-20] MEDS ORDERED: ROPIVACAINE 5MG/ML 20ML VIAL ONE (10:00)
--- NOTE | 2020-11-20 10:10 | P.PCN ---
Date of Procedure: 11/20/20 Surgeon: Amy Alicia Pathology: none sent Condition: stable Disposition: PACU Description of Procedure: Preoperative diagnoses= sacroiliac joint dysfunction and sacroiliitis on the l eft side Postoperative diagnoses= same as preoperative diagnosis. Procedure= Left sacroiliac joint steroid injection under fluoroscopic guidance. Anesthesia= local anesthesia with lidocaine 1% only Estimated blood loss=minimal. Procedure indication= the patient had a history of severe chronic low back pain, diagnosed with sacroiliitis and lumbar sacral facet arthropathy unresponsive to conservative treatment. Procedure description= the patient was seen and identified in the preoperative holding area, risks and benefits and alternative of the procedure and possible complications discussed with the patient, patient signed the consent. an IV was started, and vital signs were monitored and were stable throughout the procedure, patient was placed in the prone position or table and the lumbosacral area was prepped and draped with a sterile fashion, vital signs were closely monitored during the procedure.The sacroiliac joint was identified on the AP view of fluoroscopy then the C-arm was tilted to the contralateral oblique position to superimpose the anterior and posterior joint lines on each other and to have a unified joint line with the target point at the inferior one third of this line. I used 22-gauge 3-1/2 inch Quincke spinal needle for this procedure and after getting into the sacroiliac joint I injected 40 mg of Kenalog +2 MLS of Ropivacaine 0.5%. Patient tolerated the procedure well without any complication, The patient returned to supine position after the back was cleaned and a Band- Aid applied, the patient transported to recovery room in stable condition and he was monitored for 30 minutes before she was discharged home in stable condition . patient will follow up with the pain clinic in a few weeks. A copy of the needle placement was saved to the C-arm machine.
[2020-11-20 10:37] VITALS: BP 122/79; PULSE 65
--- NOTE | 2020-11-20 11:04 | FL ---
EXAMINATION TYPE: FL guided pain mgmt statistic DATE OF EXAM: 11/20/2020 HISTORY: Fluoroscopy time 12 seconds of fluoroscopy provided. IMPRESSION: 1. Fluoroscopy time.
== END 2020-11-20 10:45 | disposition home or self-care (01) ==
LOC: ORPAIN 08:51
PROVIDERS: ATTEND Anesthesiology
DX: G89.29 Other chronic pain (principal); M46.1 Sacroiliitis, not elsewhere classified; M53.3 Sacrococcygeal disorders, not elsewhere classified
CPT/HCPCS: 81025; J3301; J2795; G0260; 27096

== ENCOUNTER → 2020-12-14 | Outpatient (CLI) | payer OTHER ==
--- NOTE | 2020-12-14 13:18 | P.PN ---
Subjective Progress Note Date: 12/14/20 This is follow up visit for this 30 years old female, with a history of severe and chronic low back pain ,she is diagnosed with lumbar spondylosis with lumbar facet arthropathy, and lumbar degenerative disc disease, and bilateral sacroiliitis, recently admitted with left-sided sacroiliac joint steroid i njection x2 , patient reported that she get 80% improvement of her low back pain after the first left sacroiliac joint, and the pain relief was only for short- term, and she got 100% relief after the second left sacroiliac joint, and the pain relief was only for short-term goals, currently she is complaining of severe low back pain mostly in the left side Objective - Vital Signs Vital signs: Vital Signs Temp 98.2 F 12/14/20 12:52 Pulse 69 12/14/20 12:52 Resp 18 12/14/20 12:52 BP 134/84 12/14/20 12:52 Pulse Ox 97 12/14/20 12:52 Intake & Output 12/13/20 12/14/20 12/14/20 18:59 06:59 18:59 Weight 150.139 kg - Exam Physical Examinations : -Constitutiona : Cooperative , not in acute distress . -HEENT : nech : supple , no Lymphadenopathy , normal thyroid size . : eyes : no ptosis , no icterus, no photophobia . - neurologic : Cranial nerve II to XII intact , no focal neurological deffecit . -psychatric : alert , oriented X 3 , appropriate affect , intact judgment and insight . -Lymphatic : no Lymphadenopathy . - musculoskeltal : Lumber spine moter stegnth lower extremities ,thigh and legs 5/5 Right side , 5/5 Left side deep tendon reflexes : normal Knee Jerk , normal ankle Jerk lumber facet Loading Test =negative Range of motion of the lumbar spine Flexion 60 degrees, extension 10 degrees strait leg raising test = positive at 45 degree Fabere test= positive Right , and positive LT . Sever tenderness over the Sacroiliac joint on the left Gaenslen test= positive left . Seated flexion test= positive Left . Assessment and Plan Plan: Assessment and plan=1-lumbar spondylosis with lumbar facet arthropathy without myelopathy. 2-lumbar degenerative disc disease. 3-sacroiliitis. Patient had more than 80% improvement of her low back pain after left-sided sacroiliac steroid injection x2 She could benefit from RFA of the left sacroiliac joint - PQRS measures = - Patient's medications are documented in the chart. -Tobacco use is negative and counseling.Given. -Patient's has not received pneumococcal vaccine. -Advanced care planning discussed, patient not eligible. -Opiate contract not signed. -Pain positive and follow-up visit/procedure is scheduled. -Patient's blood pressure measured [ 134/84] , and documented in the record ,and patient will follow up with the primary care. -Patient's weight was measured and body mass index ,above the normal limits and counseling was done. and patient instructed to follow-up with the primary care physician. -Patient was not identified as an unhealthy alcohol user Time with Patient: Less than 30
== END | disposition home or self-care (01) ==
CPT/HCPCS: 99211

== ENCOUNTER → 2021-01-11 | Outpatient (CLI) | payer OTHER ==
[2021-01-11 11:13] VITALS: BP 137/80; PULSE 75; RESP 16; TEMP 97.6
--- NOTE | 2021-01-11 11:33 | P.PN ---
Subjective Progress Note Date: 01/11/21 This is follow up visit for this 30 years old female, with a history of severe and chronic low back pain ,she is diagnosed with lumbar spondylosis with lumbar facet arthropathy, and lumbar degenerative disc disease, and bilateral sacroiliitis, recently admitted with left-sided sacroiliac joint steroid i njection x2 , patient reported that she get 80% improvement of her low back pain after the first left sacroiliac joint, and the pain relief was only for short- term, and she got 100% relief after the second left sacroiliac joint, and the pain relief was only for short-term , she was scheduled to have RFA of the left sacroiliac joint but her insurance rejected the RFA Objective - Vital Signs Vital signs: Vital Signs Temp 97.6 F 01/11/21 11:09 Pulse 75 01/11/21 11:09 Resp 16 01/11/21 11:09 BP 137/80 01/11/21 11:09 Pulse Ox 96 01/11/21 11:09 Intake & Output 01/10/21 01/11/21 01/11/21 18:59 06:59 18:59 Weight 150.593 kg - Exam -Constitutiona : Cooperative , not in acute distress . -HEENT : nech : supple , no Lymphadenopathy , normal thyroid size . : eyes : no ptosis , no icterus, no photophobia . - neurologic : Cranial nerve II to XII intact , no focal neurological deffecit . -psychatric : alert , oriented X 3 , appropriate affect , intact judgment and insight . -Lymphatic : no Lymphadenopathy . - musculoskeltal : Lumber spine moter stegnth lower extremities ,thigh and legs 5/5 Right side , 5/5 Left side deep tendon reflexes : normal Knee Jerk , normal ankle Jerk lumber facet Loading Test =negative Range of motion of the lumbar spine Flexion 60 degrees, extension 10 degrees strait leg raising test = positive at 45 degree Fabere test= positive Right , and positive LT . Sever tenderness over the Sacroiliac joint on the left Gaenslen test= positive left . Seated flexion test= positive Left . Assessment and Plan Plan: Assessment and plan=1-lumbar spondylosis with lumbar facet arthropathy without m yelopathy. 2-lumbar degenerative disc disease. 3-sacroiliitis. Patient had more than 80% improvement of her low back pain after left-sided sacroiliac steroid injection x2 She could benefit from RFA of the left sacroiliac joint (her insurance rejected RFA of the left sacroiliac joint ) Patient could benefit from Motrin 800 mg every 8 hours when necessary for pain, Patient could benefit from Flexeril 10 mg daily at bedtime (is having some muscle spasm mostly at night ) Patient could benefit from Voltaren gel to be applied to the left buttock area twice daily - PQRS measures = - Patient's medications are documented in the chart. -Tobacco use is negative and counseling.Given. -Patient's has not received pneumococcal vaccine. -Advanced care planning discussed, patient not eligible. -Opiate contract not signed. -Pain positive and follow-up visit/procedure is scheduled. -Patient's blood pressure measured [ 137/80] , and documented in the record ,and patient will follow up with the primary care. -Patient's weight was measured and body mass index 46 ,above the normal limits and counseling was done. and patient instructed to follow-up with the primary care physician. -Patient was not identified as an unhealthy alcohol user Time with Patient: Less than 30
== END ==
LOC: PNWHC3 10:50
PROVIDERS: ATTEND Specialist
DX: M47.816 Spondylosis without myelopathy or radiculopathy, lumbar region (principal); M51.36 Other intervertebral disc degeneration, lumbar region; M46.1 Sacroiliitis, not elsewhere classified
CPT/HCPCS: 99211

== ENCOUNTER → 2021-03-15 | Outpatient (CLI) | payer OTHER ==
[2021-03-15 10:50] VITALS: BP 134/88; PULSE 68; RESP 16; TEMP 97.7
--- NOTE | 2021-03-15 11:35 | P.PN ---
Subjective Progress Note Date: 03/15/21 This is follow up visit for this 30 years old female, with a history of severe and chronic low back pain ,she is diagnosed with lumbar spondylosis with lumbar facet arthropathy, and lumbar degenerative disc disease, and bilateral sacroiliitis, recently admitted with left-sided sacroiliac joint steroid i njection x2 , patient reported that she get 80% improvement of her low back pain after the first left sacroiliac joint, and the pain relief was only for short- term, and she got 100% relief after the second left sacroiliac joint, and the pain relief was only for short-term , she was scheduled to have RFA of the left sacroiliac joint but her insurance rejected the RFA , patient started previously on Flexeril 10 mg daily at bedtime and Motrin 800 mg every 8 hours and Voltaren gel to be applied to the left buttock area twice daily she denies any side effects of the medication and she reported on the current medication helping her low back pain significantly - Exam= -Constitutiona : Cooperative , not in acute distress . -HEENT : nech : supple , no Lymphadenopathy , normal thyroid size . : eyes : no ptosis , no icterus, no photophobia . - neurologic : Cranial nerve II to XII intact , no focal neurological deffecit . -psychatric : alert , oriented X 3 , appropriate affect , intact judgment and insight . -Lymphatic : no Lymphadenopathy . - musculoskeltal : Lumber spine moter stegnth lower extremities ,thigh and legs 5/5 Right side , 5/5 Left side deep tendon reflexes : normal Knee Jerk , normal ankle Jerk lumber facet Loading Test =negative Range of motion of the lumbar spine Flexion 60 degrees, extension 10 degrees strait leg raising test = positive at 45 degree Fabere test= positive Right , and positive LT . Sever tenderness over the Sacroiliac joint on the left Gaenslen test= positive left . Seated flexion test= positive Left . Assessment and plan=1-lumbar spondylosis with lumbar facet arthropathy without myelopathy. 2-lumbar degenerative disc disease. 3-sacroiliitis. Patient had more than 80% improvement of her low back pain after left-sided sacroiliac steroid injection x2 She could benefit from RFA of the left sacroiliac joint (her insurance rejected RFA of the left sacroiliac joint ) Patient could benefit from Motrin 800 mg every 8 hours when necessary for pain, Patient could benefit from Flexeril 10 mg twice daily PRN (is having some muscle spasm mostly at night ) Patient could benefit from Voltaren gel to be applied to the left buttock area twice daily She will follow up in the pain clinic when necessary - PQRS measures = - Patient's medications are documented in the chart. -Tobacco use is negative and counseling.Given. -Patient's has not received pneumococcal vaccine. -Advanced care planning discussed, patient not eligible. -Opiate contract not signed. -Pain positive and follow-up visit/procedure is scheduled. -Patient's blood pressure measured [ 134/88] , and documented in the record ,and patient will follow up with the primary care. -Patient's weight was measured and body mass index 46 ,above the normal limits and counseling was done. and patient instructed to follow-up with the primary care physician. -Patient was not identified as an unhealthy alcohol user Objective - Vital Signs Vital signs: Vital Signs Temp 97.7 F 03/15/21 10:48 Pulse 68 03/15/21 10:48 Resp 16 03/15/21 10:48 BP 134/88 03/15/21 10:48 Pulse Ox 96 03/15/21 10:48
== END ==
LOC: PNWHC3 10:38
PROVIDERS: ATTEND Specialist
DX: M47.816 Spondylosis without myelopathy or radiculopathy, lumbar region (principal); M51.36 Other intervertebral disc degeneration, lumbar region; M46.1 Sacroiliitis, not elsewhere classified
CPT/HCPCS: 99211

== ENCOUNTER → 2022-06-16 | Outpatient (CLI) | payer OTHER ==
[2022-06-16 09:05] VITALS: BP 150/103; PULSE 77; RESP 18; TEMP 98.2
--- NOTE | 2022-06-16 09:11 | P.PN ---
Subjective Progress Note Date: 06/16/22 This is a 31-year-old morbidly obese lady with history of chronic lower back pain with radiation to the hips bilaterally without any new paresthesia. The patient had lumbar laminectomy previously and then lumbar medial branch RFA in the lumbar spine after which which helped her significantly with the pain. Then she had left sacroiliac joint steroid injection last year. The pain increased recently and the patient has been taking Flexeril and was left of [place] from her previous visit to a neurologist last year and she has been doing okay but with short-lived relief of pain from this treatment. She failed to respond to physical therapy previously. Patient denies new-onset weakness, bowel/bladder incontinence, or any other signs or symptoms of cauda equina syndrome. There are no signs of acute intoxication, and no indications of medication diversion or overuse. In addition to above, 13-point review of systems is also negative for chest pain, shortness of breath, changes in vision, changes in hearing, new onset weakness, abdominal pain, diarrhea, extreme fatigue, malaise, fever, skin changes, homicidal or suicidal ideation, or bowel or bladder incontinence. Vital Signs: Reviewed in EMR Gen: AAOx3, NAD HEENT: PERRLA,hearing grossly normal Pulm: resp unlabored Neck: supple, trachea midline Neuro exam of the lower extremities: No ptosis strength in the lower extremities bilaterally Straight leg raising test: Negative bilaterally Gio's test: Range of motion of the lumbar spine: Facet loading test: Tenderness in the paravertebral musculature: Positive bilaterally in the lumbar spine Neuro: CN II-XII grossly intact, Imaging: Reviewed in EMR/chart Assessment: Lumbar postlaminectomy pain syndrome Super morbid obesity Plan: 1. Explanation: When patients on opioids, opioid and psychological risk scores were reviewed. Diagnoses, prognoses, and multiple treatment options including but not limited to physical therapy, interventional therapies, adjuvant medical therapies, narcotic medication therapies, and surgery were discussed with the patient and all questions were answered to the patient's satisfaction. 2. Opioid agreement:When patients are prescribed opoids through our clinic, opioid agreement is signed with the patient and the patient is warned not to use opioids while driving or before driving and not to combine opioids with benzodiazepines or alcohol. 3. Counseling: When patient is smoking or obese, the patient was counseled extensively on SMOKING CESSATION, BODY MASS INDEX, EXERCISE. Specifically, the patient was instructed regarding the importance of smoking cessation, obesity, and exercise in the context of both chronic pain and overall health. 4. Procedures: Schedule for caudal epidural steroid injection under fluoroscopic guidance with lysis of adhesions. 5. Consultations: None 6. Investigations: None 7. Medications: None prescribed today 8. Disposition: Proceed with the above-mentioned procedure as soon as possible 9. Maps were reviewed and were appropriate. PQRS measures: 1-Patient's medications are documented in the chart. 2-Tobacco use is negative, counseling given 3-Patient has had a pneumococcal vaccine. 4-Advanced care planning discussed, patient unable to give 5-Opioid contract signed with the patient. 6-Pain positive, follow-up visit or procedure scheduled 7-Patient's blood pressure measured and documented above/ normal limits. The patient will follow up with his primary care physician. 8-Patient's weight was measured, and body mass index ABOVE the normal limits, and counseling was done. Patient instructed to follow up with PCP. 9-Patient WAS NOT identified as an unhealthy alcohol user. Controlled Substance Measures Is patient prescribed a controlled substance at discharge?: Yes When asked, does pt state using other controlled substances?: No If prescribed controlled substance>3 days was MAPS reviewed?: Yes If Rx opioid, was Start Talking consent form obtained?: Yes If opioid is for acute pain is fill amount 7 days or less?: No Was information provided regarding opioid addiction?: Yes Objective - Vital Signs Vital signs: Vital Signs Temp 98.2 F 06/16/22 08:55 Pulse 77 06/16/22 08:55 Resp 18 06/16/22 08:55 BP 150/103 06/16/22 08:55 Pulse Ox 96 06/16/22 08:55 FiO2 Intake & Output 06/15/22 06/16/22 06/16/22 18:59 06:59 18:59 Weight 166.922 kg
== END ==
LOC: PNWHC3 08:38
PROVIDERS: ATTEND Anesthesiology
DX: M96.1 Postlaminectomy syndrome, not elsewhere classified (principal); E66.01 Morbid (severe) obesity due to excess calories; Z68.43 Body mass index [BMI] 50.0-59.9, adult
CPT/HCPCS: 99211